=== PATIENT | male | born 1955 | race Caucasian/White ===

== ENCOUNTER 2021-01-17 10:50 | Emergency (ER) | payer MEDICARE ==
[~2021-01-17] VITALS: Ht 177.8 cm; Wt 63.5 kg
[~2021-01-17 10:50] MED LIST: AMOCLA875 PO; DIAZ5 PO; Flonase 0.05% N16 GM; KETO200 PO; LORA1 PO; MECL12.5 PO; METCAR500 PO; OXYC1TAB11; OXYC5 PO; PARO10; PRAV20; PROCODE120; Paxil40 MG PO; [UNRECOGNIZED DRUG - SUPPLY]
[2021-01-17 11:34] LABS: BASOPHILS ABSOLUTE AUTO 0.03 K/mm3 (0.00-0.23); BASOPHILS PERCENT AUTO 1 % (0-2); EOSINOPHILS ABSOLUTE AUTO 0.08 K/mm3 (0.00-0.68); EOSINOPHILS PERCENT AUTO 1 % (0-6); Hematocrit 48.2 % (37.0-53.0); Hemoglobin 16.6 g/dL (13.5-17.5); IMMATURE GRAN ABSOLUTE AUTO 0.01 K/mm3 (0.00-0.10); IMMATURE GRAN PERCENT AUTO 0 % (0-1); LYMPHOCYTES ABSOLUTE AUTO 1.46 K/mm3 (0.84-5.20); LYMPHOCYTES PERCENT AUTO 24 % (21-46); MONOCYTES ABSOLUTE AUTO 0.32 K/mm3 (0.16-1.47); MONOCYTES PERCENT AUTO 5 % (4-13); Mean Corpuscular HGB 30.6 pg (26.0-34.0); Mean Corpuscular HGB Conc 34.4 g/dL (31.5-36.5); Mean Corpuscular Volume 89 fL (80-100); Mean Platelet Volume 9.1 fL (9.1-12.4); NEUTROPHILS ABSOLUTE AUTO 4.25 K/mm3 (1.96-9.15); NEUTROPHILS PERCENT AUTO 69 % (41-73); Platelet Count 227 K/mm3 (150-400); RDW Coefficient Variation 12.9 % (11.7-14.2); RDW Standard Deviation 41.8 fL (35.1-46.3); Red Blood Cell Count 5.43 M/mm3 (4.30-5.90); White Blood Cell Count 6.15 K/mm3 (4.00-11.30)
[2021-01-17 11:49] LABS: Alanine Aminotransfer (ALT/SGP 20 U/L (12-78); Albumin, Blood 4.6 g/dL (3.4-5.0); Albumin/Globulin Ratio 1.3 (0.8-1.8); Alk Phos 74 U/L (50-136); Anion Gap 7 mmol/L (6-16); Aspartate Aminotrans (AST/SGOT 25 U/L (12-37); Bilirubin, Total 0.5 mg/dL (0.1-1.0); Blood Urea Nitrogen 22 mg/dL (8-24); Bun/Creatinine Ratio 15.3 (12.0-20.0); CO2, Blood 26 mmol/L (21-32); Calcium, Blood 9.1 mg/dL (8.5-10.1); Chloride, Blood 108 mmol/L (98-108); Creatinine, Blood 1.44 mg/dL (0.60-1.20); Globulin, Blood 3.5 g/dL (2.2-4.0); Glomerular Filtration Rate 52 (60-); Glucose, Blood 107 mg/dL (70-99); Sodium, Blood 141 mmol/L (136-145); Total Protein, Blood 8.1 g/dL (6.4-8.2); Troponin I <0.015 ng/mL (0.000-0.040)
[2021-01-17 12:27] LABS: Source, Urine Clean Catch
[2021-01-17 12:40] LABS: Appearance, Urine Clear (Clear); Bilirubin, Urine Neg (Neg); Blood, Urine 2+ (Neg); Color, Urine Yellow (P-Yellow); Glucose Qualitative, Urine Neg (Neg); Ketones, Urine 3+ (Neg); Leukocyte Esterase, Urine Neg (Neg); Nitrite, Urine Neg (Neg); Protein, Urine 1+ (Neg); Urobilinogen, Urine NORM (Normal)
[2021-01-17 12:55] LABS: U Amphetamine Screen Not Detected; U Barbituate Screen Not Detected; U Benzodiazapine Screen Not Detected; U Buprenorphine Screen Not Detected; U Cannabinoids Screen DETECTED; U Cocaine Screen Not Detected; U Methadone Screen Not Detected; U Methamphetamine Screen Not Detected; U Opiates Screen Not Detected; U Oxycodone Screen Not Detected; U Phencyclidine Screen Not Detected; U Propoxyphene Screen Not Detected
[2021-01-17 12:58] LABS: Bacteria Few /hpf; Squamous Epithelial Cells Few /hpf (Few)
[2021-01-18] MEDS ORDERED: CARVEDILOL3.125 MG (13:14)
== END 2021-01-17 15:55 | disposition home or self-care (01) ==
LOC: ER 10:50
PROVIDERS: Emergency Medicine
DX: F41.9 Anxiety disorder, unspecified (principal); I10 Essential (primary) hypertension; R07.89 Other chest pain; Z79.899 Other long term (current) drug therapy; Z88.4 Allergy status to anesthetic agent; Z88.0 Allergy status to penicillin
CPT/HCPCS: 71275; 74174; 74175; 80053; 81001; 84484; 85025; 93005; 93010; 96374-59; 96375; 99285-25; J2060; J2405; J3010; Q9967

== ENCOUNTER 2021-01-18 10:46 | Emergency (ER) | payer MEDICARE ==
[~2021-01-18] VITALS: Ht 177.8 cm; Wt 72.6 kg
[2021-01-18 12:24] LABS: BASOPHILS ABSOLUTE AUTO 0.03 K/mm3 (0.00-0.23); BASOPHILS PERCENT AUTO 1 % (0-2); EOSINOPHILS ABSOLUTE AUTO 0.11 K/mm3 (0.00-0.68); EOSINOPHILS PERCENT AUTO 2 % (0-6); Hematocrit 46.2 % (37.0-53.0); Hemoglobin 15.5 g/dL (13.5-17.5); IMMATURE GRAN ABSOLUTE AUTO 0.01 K/mm3 (0.00-0.10); IMMATURE GRAN PERCENT AUTO 0 % (0-1); LYMPHOCYTES ABSOLUTE AUTO 1.45 K/mm3 (0.84-5.20); LYMPHOCYTES PERCENT AUTO 25 % (21-46); MONOCYTES ABSOLUTE AUTO 0.34 K/mm3 (0.16-1.47); MONOCYTES PERCENT AUTO 6 % (4-13); Mean Corpuscular HGB Conc 33.5 g/dL (31.5-36.5); Mean Corpuscular Volume 89 fL (80-100); Mean Platelet Volume 8.9 fL (9.1-12.4); NEUTROPHILS ABSOLUTE AUTO 3.96 K/mm3 (1.96-9.15); NEUTROPHILS PERCENT AUTO 67 % (41-73); Platelet Count 223 K/mm3 (150-400); RDW Coefficient Variation 12.7 % (11.7-14.2); RDW Standard Deviation 41.8 fL (35.1-46.3); Red Blood Cell Count 5.17 M/mm3 (4.30-5.90)
[2021-01-18 12:44] LABS: Anion Gap 6 mmol/L (6-16); Blood Urea Nitrogen 17 mg/dL (8-24); Bun/Creatinine Ratio 11.9 (12.0-20.0); CO2, Blood 28 mmol/L (21-32); Calcium, Blood 8.8 mg/dL (8.5-10.1); Chloride, Blood 105 mmol/L (98-108); Creatinine, Blood 1.43 mg/dL (0.60-1.20); Glomerular Filtration Rate 53 (60-); Glucose, Blood 112 mg/dL (70-99); Potassium, Blood 4.3 mmol/L (3.5-5.5); Sodium, Blood 139 mmol/L (136-145); Troponin I <0.015 ng/mL (0.000-0.040)
[2021-01-18] MEDS ORDERED: CARVEDILOL3.125 MG (13:14)
== END 2021-01-18 13:48 | disposition home or self-care (01) ==
LOC: ER 10:46
PROVIDERS: Emergency Medicine
DX: M54.2 Cervicalgia (principal); E78.00 Pure hypercholesterolemia, unspecified; I10 Essential (primary) hypertension; Z79.899 Other long term (current) drug therapy; Z88.4 Allergy status to anesthetic agent; Z88.0 Allergy status to penicillin
CPT/HCPCS: 36415; 80048; 84484; 85025; 99285

== ENCOUNTER 2021-02-24 10:13 | Emergency (ER) | payer MEDICARE ==
[~2021-02-24] VITALS: Ht 177.8 cm; Wt 63.5 kg
[~2021-02-24 10:13] MED LIST changes: +CARVEDILOL3.125 MG
[2021-02-24 10:55] LABS: BASOPHILS ABSOLUTE AUTO 0.02 K/mm3 (0.00-0.23); BASOPHILS PERCENT AUTO 0 % (0-2); EOSINOPHILS PERCENT AUTO 2 % (0-6); Hematocrit 47.2 % (37.0-53.0); IMMATURE GRAN ABSOLUTE AUTO 0.02 K/mm3 (0.00-0.10); IMMATURE GRAN PERCENT AUTO 0 % (0-1); LYMPHOCYTES ABSOLUTE AUTO 1.31 K/mm3 (0.84-5.20); LYMPHOCYTES PERCENT AUTO 20 % (21-46); MONOCYTES ABSOLUTE AUTO 0.31 K/mm3 (0.16-1.47); MONOCYTES PERCENT AUTO 5 % (4-13); Mean Corpuscular HGB 30.5 pg (26.0-34.0); Mean Corpuscular HGB Conc 33.9 g/dL (31.5-36.5); Mean Corpuscular Volume 90 fL (80-100); Mean Platelet Volume 8.9 fL (9.1-12.4); NEUTROPHILS ABSOLUTE AUTO 4.88 K/mm3 (1.96-9.15); NEUTROPHILS PERCENT AUTO 74 % (41-73); Platelet Count 234 K/mm3 (150-400); RDW Coefficient Variation 12.5 % (11.7-14.2); RDW Standard Deviation 41.1 fL (35.1-46.3); Red Blood Cell Count 5.25 M/mm3 (4.30-5.90); White Blood Cell Count 6.64 K/mm3 (4.00-11.30)
[2021-02-24 11:21] LABS: Alanine Aminotransfer (ALT/SGP 21 U/L (12-78); Albumin, Blood 4.2 g/dL (3.4-5.0); Albumin/Globulin Ratio 1.1 (0.8-1.8); Alk Phos 74 U/L (50-136); Anion Gap 3 mmol/L (6-16); Aspartate Aminotrans (AST/SGOT 20 U/L (12-37); Bilirubin, Total 0.8 mg/dL (0.1-1.0); Blood Urea Nitrogen 17 mg/dL (8-24); Bun/Creatinine Ratio 12.1 (12.0-20.0); CO2, Blood 27 mmol/L (21-32); Calcium, Blood 9.1 mg/dL (8.5-10.1); Chloride, Blood 110 mmol/L (98-108); Creatinine, Blood 1.41 mg/dL (0.60-1.20); Globulin, Blood 3.7 g/dL (2.2-4.0); Glomerular Filtration Rate 54 (60-); Glucose, Blood 104 mg/dL (70-99); Potassium, Blood 4.1 mmol/L (3.5-5.5); Sodium, Blood 140 mmol/L (136-145); Total Protein, Blood 7.9 g/dL (6.4-8.2); Troponin I <0.015 ng/mL (0.000-0.040)
== END 2021-02-24 11:47 | disposition home or self-care (01) ==
LOC: ER 10:13
PROVIDERS: Emergency Medicine
DX: F41.9 Anxiety disorder, unspecified (principal); R07.9 Chest pain, unspecified; E78.00 Pure hypercholesterolemia, unspecified; I10 Essential (primary) hypertension; Z88.4 Allergy status to anesthetic agent; Z88.0 Allergy status to penicillin
CPT/HCPCS: 36415; 80053; 84484; 85025; 93005; 93010; 99285-25; A9270

== ENCOUNTER 2021-03-01 07:35 | Emergency (ER) | payer MEDICARE ==
[~2021-03-01] VITALS: Ht 170.2 cm; Wt 61.2 kg
[2021-03-01] MEDS ORDERED: SERT50 PO (09:09)
[2021-03-01] MEDS ORDERED: MIRT15 PO (09:18)
== END 2021-03-01 09:45 | disposition home or self-care (01) ==
LOC: ER 07:35
DX: F41.9 Anxiety disorder, unspecified (principal); M25.512 Pain in left shoulder; M25.511 Pain in right shoulder; I10 Essential (primary) hypertension; E78.00 Pure hypercholesterolemia, unspecified; Z79.899 Other long term (current) drug therapy; Z88.4 Allergy status to anesthetic agent; Z88.0 Allergy status to penicillin
CPT/HCPCS: 93005; 93010; 99283-25; A9270

== ENCOUNTER 2021-05-01 12:05 | Inpatient (IN) | payer OTHER, MEDICARE ==
[~2021-05-01] VITALS: Ht 177.8 cm; Wt 71.1 kg
[~2021-05-01 12:05] MED LIST changes: -CARVEDILOL3.125 MG; +CARVEDILOL3.125 MG PO; -METCAR500 PO; +MIRT15 PO; +Methocarbamol500 MG PO; +SERT50 PO
[2021-05-01 15:20] LABS: Hematocrit 42.2 % (37.0-53.0); Hemoglobin 14.3 g/dL (13.5-17.5); Mean Corpuscular HGB 30.2 pg (26.0-34.0); Mean Corpuscular HGB Conc 33.9 g/dL (31.5-36.5); Mean Corpuscular Volume 89 fL (80-100); Platelet Count 231 K/mm3 (150-400); RDW Coefficient Variation 12.6 % (11.7-14.2); RDW Standard Deviation 41.5 fL (35.1-46.3); Red Blood Cell Count 4.74 M/mm3 (4.30-5.90)
[2021-05-01 15:43] LABS: SARS-Cov-2 (COVID-19) PCR, MMC NEGATIVE (NEGATIVE)
[2021-05-01 15:54] LABS: Bun/Creatinine Ratio 16.4 (12.0-20.0); Calcium, Blood 8.3 mg/dL (8.5-10.1); Creatinine, Blood 1.34 mg/dL (0.60-1.20); Potassium, Blood 4.4 mmol/L (3.5-5.5)
--- NOTE | 2021-05-01 18:40 | NUR ---
SHIFT SUMMARY PT ADMITTED THIS SHIFT AROUND 1630. PT IS A/O X4 AND ANXIOUS. PAIN MANAGED WITH DILAUDED PRN PER ORDERS. UPON ARRIVAL PT STATED HE HAD TO URINATE. ASSISTED WITH URINAL HOWEVER PT WAS UNABLE TO VOID. STATES HE CANNOT PEE WHILE IN BED AND WANTED A CATHETER. PROVIDER AGREEABLE TO CATHETER. PT HAS BEEN ORIENTED TO ROOM AND CALL LIGHT. HE IS REQUESTING THAT DOOR AND CURTAIN REMAIN OPEN R/T ANXIETY. PT ORIENTED TO CALL LIGHT BUT HAS BEEN YELLING OUT FOR STAFF DESPITE ENCOURAGMENT TO USE CALL LIGHT.
[2021-05-01 18:57] LABS: Source, Urine Catheter
[2021-05-01 18:59] LABS: Bilirubin, Urine Neg (Neg); Blood, Urine 1+ (Neg); Glucose Qualitative, Urine Neg (Neg); Ketones, Urine Neg (Neg); Leukocyte Esterase, Urine Neg (Neg); Nitrite, Urine Neg (Neg); Protein, Urine Neg (Neg); Specific Gravity, Urine 1.015 (1.003-1.022); Urobilinogen, Urine NORM (Normal)
[2021-05-01 19:07] LABS: Appearance, Urine Bloody (Clear); Color, Urine Yellow (P-Yellow)
[2021-05-01 19:09] LABS: Bacteria Not Seen /hpf; Red Blood Cells, Urine 0-2 /hpf (0-2); Squamous Epithelial Cells Rare /hpf (Few); White Blood Cells, Urine Rare /hpf (0-5)
--- NOTE | 2021-05-01 19:15 | NUR ---
KHAN PLACED, DRAINING CLEAR YELLOW URINE. PT SLEEPING AT THIS TIME.
--- NOTE | 2021-05-01 19:18 | NUR ---
RECEIVED REPORT AND ASSUMED CARE OF PT. HE IS LYING QUIETLY IN BED WITH HIS EYES CLOSED, RESPIRATIONS EVEN AND UNLABORED. WCTM.
--- NOTE | 2021-05-02 05:53 | NUR ---
SHIFT SUMMARY: SAVAGE IS A&O WITH SOME OCCASIONAL CONFUSION. VSS, NO ACUTE EVENTS OVERNIGHT. HE IS ANXIOUS AND DOES NOT USE THE CALL LIGHT IN SPITE OF REPEATED EDUCATION AND ENCOURAGEMENT. HE REPORTS ADEQUATE PAIN CONTROL WITH THE 1 MG OF DILAUDID. HE WAS MADE NPO AT MIDNIGHT, KHAN PATENT AND DRAINING. HE IS LYING IN BED WITH THE CALL LIGHT IN PLACE. WILL REPORT TO DAY NEEMA DANIEL.
--- NOTE | 2021-05-02 12:17 | NUR ---
PT TO OR PT TRANSFERED TO OR VIA HOSPITAL BED @ THIS TIME.
--- NOTE | 2021-05-02 12:33 | NUR ---
PT TO SDS FROM 219. REPORTS NPO X 2 DAYS. Lungs clear T/O to Auscultation. History, Chart, Medications and Allergies reviewed before start of procedure. DR. MANZANO AT BEDSIDE, SITE CLIPPED BY . EMS IV IN PLACE, L AC. KHAN IN PLACE, DRAINING TO GRAVITY.
--- NOTE | 2021-05-02 14:30 | NUR ---
05/02/21 1430 BLAKEKILEY YANG PT ARRIVED IN THE OR WITH PRE EXISTING KHAN CATH IN PLACE.
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
--- NOTE | 2021-05-02 18:33 | NUR ---
PT NOTE PT RESPONDED WELL TO ATIVAN HAS BEEN RESTING EASILY. VSS.
--- NOTE | 2021-05-03 03:57 | NUR ---
SHIFT SUMMARY: PT POD#1 FOR A LT GRZEGORZ. PT RESTING IN BEGINNING OF SHIFT, OPENING EYES SPONTANEOUSLY. PT BECOMING MORE AWAKE NOW. A&O X4. INTERMITTENTLY ANXIOUS AND HAS HOLLERED OUT TWICE. REPOSITIONED FOR COMFORT T/O SHIFT. MEDICATED WITH TYLENOL AND OXY PER EMAR. TOLERATING REGULAR DIET. REQUIRING ASSISTANCE WITH FEEDING D/T PATIENT REPORTING FROZEN SHOULDER ON RT ARM AND A SORE LEFT ARM R/T FALL. AQUACEL DRESSING C/D/I. POLAR PACK IN PLACE. IV ABX+IVF INFUSING PER EMAR. KHAN PATENT AND DRAINING.
--- NOTE | 2021-05-03 17:29 | NUR ---
SHIFT SUMMARY PT A&O X4, THOUGH VERBALIZED WORSTENING MEMORY ISSUES. WORKED WITH P/T & O/T. PT UP TO CHAIR FOR MOST OF SHIFT. VSS. TOLERATING ORAL INTAKE WELL. PT EXPERIENCING SOME ANXIETY ABOUT USING URINAL AFTER KHAN D/C, MEDICATED PER EMAR. REMINDED PT OF CALL LIGHT T/O SHIFT. CALL LIGHT W/IN REACH.
--- NOTE | 2021-05-03 21:00 | NUR ---
AT APPROX 2034, THIS RN HEARD PT HOLLERING OUT/YELLING FOR HELP. PT FOUND ON GROUND IN HALLWAY WITHOUT CLOTHES. PT SLIGHTLY LYING ON RT SIDE THEN ROLLED ONTO HIS ABD. WITH ASSISTANCE OF OTHER STAFF, PT PUT INTO JANEEN LIFT AND PUT BACK INTO BED. DRESSING TO LEFT HIP C/D/I WITHOUT BLOOD PRESENT. FEBRILE AT 100.3, ALL OTHER VS WNL. PT CONFUSED AND AGITATED AT THIS TIME. CUSSING AT STAFF AND WANTING TO LEAVE THE HOSPITAL. PT PARANOID AND ACCUSING STAFF OF WANTING TO MURDER HIM. PROVIDER NOTIFIED. NEW ORDER FOR UA, CHEST XRAY AND LEFT HIP XRAY.
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
--- NOTE | 2021-05-03 22:45 | NUR ---
DR. LINDQUIST IN TO SEE PATIENT.
[2021-05-04 04:00] LABS: Source, Urine Catheter
[2021-05-04 04:01] LABS: Bilirubin, Urine Neg (Neg); Blood, Urine 4+ (Neg); Glucose Qualitative, Urine Neg (Neg); Ketones, Urine 3+ (Neg); Leukocyte Esterase, Urine Neg (Neg); Nitrite, Urine Neg (Neg); Protein, Urine 1+ (Neg); Specific Gravity, Urine 1.015 (1.003-1.022); Urobilinogen, Urine NORM (Normal)
[2021-05-04 04:25] LABS: Appearance, Urine Clear (Clear); Color, Urine Yellow (P-Yellow); Red Blood Cells, Urine 0-2 /hpf (0-2); White Blood Cells, Urine 0-2 /hpf (0-5)
[2021-05-04 04:26] LABS: Amorphous Light (0-Heavy); Bacteria Few /hpf; Hyaline Casts 0-2 /lpf (0-2); Squamous Epithelial Cells Not Seen /hpf (Few)
--- NOTE | 2021-05-04 05:07 | NUR ---
SHIFT SUMMARY: PT REMAINS AGITATED, PARANOID AND CONFUSED. 4 POINT VIOLENT RESTRAINTS IN PLACE WITH Q15 ASSESSMENTS. UA VIA STRAIGHT CATH OBTAINED AND SENT TO LAB. AWAITING CHEST+HIP XRAY. PT INCONTINENT THIS SHIFT. BLADDER SCANS SHOWING <200. PT HOLLERING OUT T/O NIGHT. ZYPREXA INEFFECTIVE. NEW ORDER FOR HALDOL AND ATIVAN PER HOSPITALIST.
[2021-05-04 05:21] LABS: BASOPHILS ABSOLUTE AUTO 0.02 K/mm3 (0.00-0.23); BASOPHILS PERCENT AUTO 0 % (0-2); EOSINOPHILS PERCENT AUTO 1 % (0-6); Hematocrit 38.5 % (37.0-53.0); Hemoglobin 13.4 g/dL (13.5-17.5); IMMATURE GRAN ABSOLUTE AUTO 0.03 K/mm3 (0.00-0.10); IMMATURE GRAN PERCENT AUTO 0 % (0-1); LYMPHOCYTES ABSOLUTE AUTO 0.82 K/mm3 (0.84-5.20); LYMPHOCYTES PERCENT AUTO 9 % (21-46); MONOCYTES ABSOLUTE AUTO 0.67 K/mm3 (0.16-1.47); MONOCYTES PERCENT AUTO 8 % (4-13); Mean Corpuscular HGB 30.5 pg (26.0-34.0); Mean Corpuscular HGB Conc 34.8 g/dL (31.5-36.5); Mean Corpuscular Volume 88 fL (80-100); Mean Platelet Volume 9.1 fL (9.1-12.4); NEUTROPHILS ABSOLUTE AUTO 7.15 K/mm3 (1.96-9.15); NEUTROPHILS PERCENT AUTO 82 % (41-73); Platelet Count 197 K/mm3 (150-400); RDW Coefficient Variation 12.1 % (11.7-14.2); Red Blood Cell Count 4.39 M/mm3 (4.30-5.90); White Blood Cell Count 8.79 K/mm3 (4.00-11.30)
[2021-05-04 05:38] LABS: Albumin, Blood 3.3 g/dL (3.4-5.0); Bilirubin, Total 0.6 mg/dL (0.1-1.0); Bun/Creatinine Ratio 17.6 (12.0-20.0); Calcium, Blood 8.1 mg/dL (8.5-10.1); Creatinine, Blood 1.25 mg/dL (0.60-1.20); Globulin, Blood 3.4 g/dL (2.2-4.0); Potassium, Blood 4.1 mmol/L (3.5-5.5); Total Protein, Blood 6.7 g/dL (6.4-8.2)
--- NOTE | 2021-05-04 08:15 | NUR ---
PT AAOX1 HE COULD TELL ME THE TOWN/STATE WE ARE IN AND NOTHING ELSE. UNABLE TO TRACK WITH HIS EYES AND DIFFICULTY FOLLOWING ANY DIRECTIONS. REMOVED TWICE TUFFS AT THIS TIME, NOTIFIED BORING MACHINE OPERATOR HELPER AND TALENT DEVELOPMENT DIRECTOR. PT CURRENTLY LAYING IN BED QUIETLY TALKING TO SELF. MESSAGE SENT TO PHYSICIAN AT THIS TIME.
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
[2021-05-04] MEDS ORDERED: PAXIL40 M1 PO (14:49)
[2021-05-04] MEDS ORDERED: MIRT15 PO (14:51)
--- NOTE | 2021-05-04 18:31 | NUR ---
SHIFT SUMMARY PT REMAINED AGITATED UNTIL 1814 TONIGHT. HE ALLOWED THIS RN TO PASS HIS MEDICATIONS AND ALLOWED US TO CHANGE HIM. THERE WAS NO SWEARING OR THREATENING. HE REMAINED AA0X1 AND WAS VERY CONFUSED. DRESSING CHANGED TWICE DURING SHIFT. NEW MEDIPORE PLACED BY DR MANZANO THIS EVENING. BED ALARM REMAINS ON AND CALL LIGHT IS IN REACH.
--- NOTE | 2021-05-05 02:13 | NUR ---
SHIFT SUMMARY: POD 3 LEFT HIP REPAIR PATIENT HAS BEEN ASLEEP MAJORITY OF THE SHIFT. PATIENT WHILE AWAKE IS CONFUSED AND PARANOID. PATIENT DOES HAVE ZYPREXA AND SEROQUEL IN EMAR IF HE BECOMES MORE AGITATED. PATIENTS LEFT HIP WITH DRESSING IS C/D/I. HE IS ABLE TO WIGGLE FINGERS AND TOES WHEN ASKED. PATIENT DID HAVE A SMALL BM AT THE BEGINNING OF THE SHIFT. HE HAS ATTENDS ON AND WILL BE CHANGED PRN. PATIENT IS CURRENTLY ASLEEP WITH BED ALARM ON AND CALL LIGHT WITHIN REACH.
--- NOTE | 2021-05-05 16:27 | NUR ---
SHIFT SUMMARY PT MUCH MORE ALERT AND ORIENTED TODAY. REPORTS SEEING THINGS MOVING ON MAIN AND REPORTS SEEING THINGS. STATES THE HE KNOWS ITS PROBABLY ISNT REAL BUT THINKS IT IS STRANGE. DENIES PAIN DURING SHIFT OR REPORTED IT TOLERABLE. REMAINS INC OF VOID AND STOOL BUT WILL CALL TO NOTIFY NURSES OF VOIDS. HAS BEEN PLEASANT AND COOPERATIVE T/O SHIFT, HE APOLOGIZED FOR HIS BEHAVIORS YESTERDAY. WORKED WITH THERAPY TODAY AND GOT UP TO SIDE OF THE BED. PLAN WILL BE TO CONTINUE TO WORK WITH THERAPY
--- NOTE | 2021-05-06 18:47 | NUR ---
SHIFT SUMMARY PT A/O THIS SHIFT BUT HAS PERIODS OF SLIGHT CONFUSION/HALLUCINATIONS. EASILY REDIRECTABLE. PT UP IN A CHAIR FOR MEALS WITH A 2 PERSON ASSIST. WORKED WITH PHYSICAL AND OCCUPATIONAL THERAPY TODAY. PT SEEMS TO BE EXPERIENCING INCREASED STIFFNESS TODAY WHICH MAKES MOVEMENT SLIGHTLY DIFFICULT. MEDICATED FOR PAIN 3 TIMES THIS SHIFT. VSS. WILL REPORT TO ONCOMING RN.
--- NOTE | 2021-05-07 17:57 | NUR ---
SHIFT SUMMARY POD 5 FOR LEFT TOTAL HIP DUE TO A FALL. AQUACEL IN PLACE AND C/D/I. PT MEDICATED PER EMAR FOR PAIN AND RESPONDED WELL TO SHIFTING POSITIONS. PT IS CONFUSED MOST OF THE TIME. PT IS INCONTINENT AND HAS AN ATTENDS IN PLACE. PT IS ABLE TO FEED HIMSELF BUT OCCASIONALLY NEEDS HELP WITH OPENING THINGS. PT WAS ABLE TO GET UP TO CHAIR TODAY FOR A COUPLE HOURS. PT IS ABLE TO USE CALL LIGHT AND CALL LIGHT IS WITHING REACH. PT'S HAS BEEN MEDICATED PER EMAR FOR PAIN. PT WORKED WITH PHYSICAL THERAPY TODAY AND TOLERATED WELL. WILL CONTINUE TO MONITOR.
--- NOTE | 2021-05-08 19:39 | NUR ---
SHIFT SUMMARY POD 6 FOR LEFT TOTAL HIP REPAIR DUE TO FALL. PT IS A&O TO SELF AND OCCASIONALLY PLACE. AQUACEL IN PLACE TO LEFT HIP AND C/D/I. PT GETS VERY CONFUSED AND FRUSTRATED. PT IS INCONTINENT AT TIMES AND HAS ATTENDS IN PLACE. PT DOES CALL WHEN NEEDS TO BE CHANGED FREQUENTLY. PT IS ABLE TO TAKE MEDICATIONS WHOLE. PT IS DIFFICULT TO GAUGE PAIN SCALE DUE TO HIS CONFUSION. TREATED PER EMAR PRN. DISCUSSED PT'S SITUATION WITH DR. JOHNS AND PER DR. JOHNS AWAIT PSYCH CONSULT UNTIL THEY ARE ON SHIFT ON SUNDAY AT THIS TIME. CONTINUE TO REORIENT PT. CALL LIGHT WITHIN REACH.
--- NOTE | 2021-05-09 07:32 | NUR ---
SUMMARY PT CONTINUES INAPROPRIATE TO SITUATION. SCREAMING OUT AND USING F WORD FREQUENTLY.WILL NOT USE CALL BUTTON,DEMANDING REQUIRED SEROQUEL AND ZYPREXA TONIGHT.DISCOVERED PT HAD FLIPPED SELF PRONE IN BED THEN SCREAMING OUT AND DEMANDED IMMEDIATE REPOSITIONING.
[2021-05-09 09:46] LABS: Albumin, Blood 3.3 g/dL (3.4-5.0); Anion Gap 5 mmol/L (6-16); Blood Urea Nitrogen 31 mg/dL (8-24); CO2, Blood 28 mmol/L (21-32); Calcium, Blood 8.7 mg/dL (8.5-10.1); Chloride, Blood 107 mmol/L (98-108); Creatinine, Blood 1.41 mg/dL (0.60-1.20); Glomerular Filtration Rate 51 (60-); Glucose, Blood 101 mg/dL (70-99); Phosphorus, Blood 3.5 mg/dL (2.5-4.9); Potassium, Blood 4.5 mmol/L (3.5-5.5); Sodium, Blood 140 mmol/L (136-145)
[2021-05-09 09:52] LABS: BASOPHILS ABSOLUTE AUTO 0.04 K/mm3 (0.00-0.23); BASOPHILS PERCENT AUTO 1 % (0-2); EOSINOPHILS ABSOLUTE AUTO 0.43 K/mm3 (0.00-0.68); EOSINOPHILS PERCENT AUTO 6 % (0-6); Hematocrit 41.8 % (37.0-53.0); Hemoglobin 14.1 g/dL (13.5-17.5); IMMATURE GRAN ABSOLUTE AUTO 0.03 K/mm3 (0.00-0.10); IMMATURE GRAN PERCENT AUTO 0 % (0-1); LYMPHOCYTES ABSOLUTE AUTO 1.69 K/mm3 (0.84-5.20); LYMPHOCYTES PERCENT AUTO 23 % (21-46); MONOCYTES ABSOLUTE AUTO 0.84 K/mm3 (0.16-1.47); MONOCYTES PERCENT AUTO 11 % (4-13); Mean Corpuscular HGB 30.3 pg (26.0-34.0); Mean Corpuscular HGB Conc 33.7 g/dL (31.5-36.5); Mean Corpuscular Volume 90 fL (80-100); Mean Platelet Volume 9.2 fL (9.1-12.4); NEUTROPHILS ABSOLUTE AUTO 4.37 K/mm3 (1.96-9.15); NEUTROPHILS PERCENT AUTO 59 % (41-73); Platelet Count 271 K/mm3 (150-400); RDW Coefficient Variation 12.2 % (11.7-14.2); RDW Standard Deviation 40.3 fL (35.1-46.3); Red Blood Cell Count 4.65 M/mm3 (4.30-5.90)
--- NOTE | 2021-05-09 12:58 | NUR ---
RESTRAINTS HAVE BEEN OFF SINCE 05/04/21 AT 0815. SEE NOTE FROM ON 05/04.
[2021-05-09 14:13] LABS: SARS-Cov-2 (COVID-19) PCR, MMC NEGATIVE (NEGATIVE)
--- NOTE | 2021-05-09 16:23 | NUR ---
DISCHARGED PT DISCHARGED TO [facility] VIA TRANSPORT. PT VSS. PPP, DRESSING C/D/I. ESCORTED VIA WC, NO IV IN PLACE. REPORT GIVEN TO NURSE COLEEN. PT TOLERATING ORAL INTAKE, DENIES N/V, VOIDING WELL. SCRIPT IN PACKET PROVIDED TO TRANSPORTER. LEFT @ 2661.
== END 2021-05-09 16:23 | disposition home or self-care (01) | DRG 521 ==
LOC: ER 12:05 → SURS 14:32 → ERHOLD 14:32 → SURS 16:38
PROVIDERS: Internal Medicine; Orthopaedic Surgery; ADMIT Orthopaedic Surgery
PROC: 0SRS0JZ Replacement of Left Hip Joint, Femoral Surface with Synthetic Substitute, Open Approach (ICD-10-PCS; principal; 2021-05-02 13:30)
DX: S72.142A Displaced intertrochanteric fracture of left femur, initial encounter for closed fracture (principal); G92 Toxic encephalopathy; F05 Delirium due to known physiological condition; E78.00 Pure hypercholesterolemia, unspecified; M19.90 Unspecified osteoarthritis, unspecified site; W01.0XXA Fall on same level from slipping, tripping and stumbling without subsequent striking against object, initial encounter; R45.1 Restlessness and agitation; F41.9 Anxiety disorder, unspecified; Z20.822 Contact with and (suspected) exposure to COVID-19; F03.90 Unspecified dementia, unspecified severity, without behavioral disturbance, psychotic disturbance, mood disturbance, and anxiety; I12.9 Hypertensive chronic kidney disease with stage 1 through stage 4 chronic kidney disease, or unspecified chronic kidney disease; N18.30 Chronic kidney disease, stage 3 unspecified; M79.7 Fibromyalgia; Y92.64 Mine or pit as the place of occurrence of the external cause; Z88.0 Allergy status to penicillin; Z88.4 Allergy status to anesthetic agent; Z90.89 Acquired absence of other organs; Z98.890 Other specified postprocedural states; Z86.010 Personal history of colon polyps; Z79.899 Other long term (current) drug therapy; Z78.1 Physical restraint status; I25.2 Old myocardial infarction
CPT/HCPCS: 36415; 70450; 71045; 72170; 73502; 80048; 80053; 80069; 81001; 85025; 85027; 96374; 96375; 97110; 97162; 97166; 97530; 97535; 99285-25; A9270; C1713; C1776; J0171; J0690; J0735; J1170; J1630; J1885; J2060; J2250; J2270; J2704; J2795; J3010; J7030; J7120; U0004

== ENCOUNTER 2021-05-12 22:48 | Emergency (ER) | payer MEDICARE ==
[~2021-05-12] VITALS: Ht 177.8 cm; Wt 56.7 kg
[~2021-05-12 22:48] MED LIST changes: +PAXIL40 M1 PO
[2021-05-13] MEDS ORDERED: QUET25 PO (20:26)
[2021-05-14] MEDS ORDERED: Seroquel Xr50 MG PO (13:53)
[2021-05-14] MEDS ORDERED: Prinivil10 MG PO (13:53)
[2021-05-14] MEDS ORDERED: OLAN5A MM (13:54)
[2021-05-14] MEDS ORDERED: QUET25 PO (20:42)
== END 2021-05-13 00:29 | disposition home or self-care (01) ==
LOC: ER 22:48
DX: R45.1 Restlessness and agitation (principal)
CPT/HCPCS: 96372; 99284-25; J2060

== ENCOUNTER 2021-05-14 16:39 | Emergency (ER) | payer MEDICARE ==
[~2021-05-14] VITALS: Ht 182.9 cm; Wt 68.0 kg
[~2021-05-14 16:39] MED LIST changes: +OLAN5A MM; +Prinivil10 MG PO; +QUET25 PO; +Seroquel Xr50 MG PO
[2021-05-14 16:59] LABS: BASOPHILS ABSOLUTE AUTO 0.03 K/mm3 (0.00-0.23); BASOPHILS PERCENT AUTO 1 % (0-2); EOSINOPHILS ABSOLUTE AUTO 0.14 K/mm3 (0.00-0.68); EOSINOPHILS PERCENT AUTO 2 % (0-6); Hematocrit 36.3 % (37.0-53.0); Hemoglobin 12.3 g/dL (13.5-17.5); IMMATURE GRAN ABSOLUTE AUTO 0.03 K/mm3 (0.00-0.10); IMMATURE GRAN PERCENT AUTO 1 % (0-1); LYMPHOCYTES ABSOLUTE AUTO 1.17 K/mm3 (0.84-5.20); LYMPHOCYTES PERCENT AUTO 18 % (21-46); MONOCYTES ABSOLUTE AUTO 0.45 K/mm3 (0.16-1.47); MONOCYTES PERCENT AUTO 7 % (4-13); Mean Corpuscular HGB 30.1 pg (26.0-34.0); Mean Corpuscular HGB Conc 33.9 g/dL (31.5-36.5); Mean Corpuscular Volume 89 fL (80-100); Mean Platelet Volume 9.1 fL (9.1-12.4); NEUTROPHILS ABSOLUTE AUTO 4.63 K/mm3 (1.96-9.15); NEUTROPHILS PERCENT AUTO 72 % (41-73); Platelet Count 329 K/mm3 (150-400); RDW Standard Deviation 39.2 fL (35.1-46.3); Red Blood Cell Count 4.08 M/mm3 (4.30-5.90); White Blood Cell Count 6.45 K/mm3 (4.00-11.30)
[2021-05-14 17:16] LABS: Alanine Aminotransfer (ALT/SGP 37 U/L (12-78); Albumin/Globulin Ratio 0.9 (0.8-1.8); Alk Phos 67 U/L (50-136); Anion Gap 4 mmol/L (6-16); Aspartate Aminotrans (AST/SGOT 25 U/L (12-37); Bilirubin, Total 0.5 mg/dL (0.1-1.0); Blood Urea Nitrogen 26 mg/dL (8-24); CO2, Blood 26 mmol/L (21-32); Calcium, Blood 8.2 mg/dL (8.5-10.1); Chloride, Blood 111 mmol/L (98-108); Creatinine, Blood 1.37 mg/dL (0.60-1.20); Ethanol (Alcohol), Blood, Med <3 mg/dL; Globulin, Blood 3.2 g/dL (2.2-4.0); Glomerular Filtration Rate 52 (60-); Glucose, Blood 114 mg/dL (70-99); Potassium, Blood 4.4 mmol/L (3.5-5.5); Sodium, Blood 141 mmol/L (136-145); Total Protein, Blood 6.2 g/dL (6.4-8.2)
[2021-05-14 18:13] LABS: U Amphetamine Screen Not Detected; U Barbituate Screen Not Detected; U Benzodiazapine Screen DETECTED; U Buprenorphine Screen Not Detected; U Cannabinoids Screen Not Detected; U Cocaine Screen Not Detected; U Methadone Screen Not Detected; U Methamphetamine Screen Not Detected; U Opiates Screen Not Detected; U Oxycodone Screen Not Detected; U Phencyclidine Screen Not Detected; U Propoxyphene Screen Not Detected
[2021-05-14] MEDS ORDERED: QUET25 PO (20:42)
== END 2021-05-14 21:47 | disposition home or self-care (01) ==
LOC: ER 16:39
PROVIDERS: Emergency Medicine
DX: R40.4 Transient alteration of awareness (principal); T42.4X5A Adverse effect of benzodiazepines, initial encounter; F03.90 Unspecified dementia, unspecified severity, without behavioral disturbance, psychotic disturbance, mood disturbance, and anxiety; I10 Essential (primary) hypertension; Z88.8 Allergy status to other drugs, medicaments and biological substances; Z88.0 Allergy status to penicillin; Z79.899 Other long term (current) drug therapy
CPT/HCPCS: 36415; 51701; 80053; 85025; 93005; 93010; A9270; G0480; J7030